=== PATIENT | male | born 1960 ===

== ENCOUNTER 2022-01-29 08:18 | Outpatient (CLI) | payer MEDICARE, OTHER, SELFPAY ==
--- NOTE | 2022-01-29 08:15 | RT.EKG_ITS ---
APPROVED REPORT Exam: Resting ECG Reason for Exam: CAD Patient Location: O HR:77 bpm ECG Measurements Heart Rate 77 AXIS IA 173 P 72 QRSd 90 QRS 25 QT 398 T 46 QTc 451 Conclusion Sinus rhythm...normal P axis, V-rate 50- 99 Probable left atrial enlargement...P >50mS, <-0.10mV V1 Otherwise normal
== END 2022-01-29 08:19 | disposition home or self-care (01) ==
LOC: DI.CARD 08:20
PROVIDERS: PCP Family Medicine; Visit Provider Internal Medicine Cardiovascular Disease
DX: I25.10 Atherosclerotic heart disease of native coronary artery without angina pectoris (principal)
CPT/HCPCS: 93010

== ENCOUNTER → 2022-01-29 12:23 | Outpatient (BNVA) | payer MEDICARE, OTHER, SELFPAY | PROVIDERS: PCP Family Medicine; Referring Provider Family Medicine; Visit Provider Internal Medicine Cardiovascular Disease | DX: I25.10 Atherosclerotic heart disease of native coronary artery without angina pectoris (principal); I35.0 Nonrheumatic aortic (valve) stenosis; I10 Essential (primary) hypertension; E78.5 Hyperlipidemia, unspecified; Z95.5 Presence of coronary angioplasty implant and graft | CPT/HCPCS: 93005; 99203 ==

== ENCOUNTER → 2023-01-31 10:31 | Outpatient (BNVA) | payer MEDICARE, OTHER, SELFPAY | PROVIDERS: PCP Family Medicine; Referring Provider Family Medicine; Visit Provider Internal Medicine Cardiovascular Disease | DX: I35.0 Nonrheumatic aortic (valve) stenosis (principal); I25.10 Atherosclerotic heart disease of native coronary artery without angina pectoris; E78.5 Hyperlipidemia, unspecified | CPT/HCPCS: 99214 ==

== ENCOUNTER 2024-09-13 08:05 | Outpatient (CLI) | payer MEDICARE, SELFPAY ==
--- NOTE | 2024-09-13 08:00 | RT.EKG_ITS ---
APPROVED REPORT Exam: Resting ECG Reason for Exam: CAD Patient Location: O HR:67 bpm ECG Measurements Heart Rate 67 AXIS TX 189 P 59 QRSd 106 QRS 2 QT 414 T 35 QTc 437 Conclusion Sinus rhythm...normal P axis, V-rate 50- 99 Normal Electrocardiogram
== END 2024-09-13 08:06 | disposition home or self-care (01) ==
LOC: DI.CARD 08:06
PROVIDERS: PCP Family Medicine; Visit Provider Internal Medicine Cardiovascular Disease
DX: I25.10 Atherosclerotic heart disease of native coronary artery without angina pectoris (principal)
CPT/HCPCS: 93010

== ENCOUNTER → 2024-09-13 09:00 | Outpatient (BNVA) | payer MEDICARE, SELFPAY | PROVIDERS: PCP Family Medicine; Referring Provider Family Medicine; Visit Provider Internal Medicine Cardiovascular Disease | DX: I35.0 Nonrheumatic aortic (valve) stenosis (principal); I25.10 Atherosclerotic heart disease of native coronary artery without angina pectoris; Z79.899 Other long term (current) drug therapy | CPT/HCPCS: 99213; 93005 ==

== ENCOUNTER → 2025-02-26 00:19 | Outpatient (CLI) | payer MEDICARE, SELFPAY ==
--- NOTE | 2025-02-26 07:45 | DI.US_ITS ---
APPROVED REPORT EXAM: Comprehensive 2D, Doppler, and color-flow Echocardiogram Patient Location: Out-Patient [employer] Manager: Lavenre Cornelius RT (R) (CT) [facility] Rhythm: Bradycardia Indications: Non-rheumatic aortic valve stenosis. Other Information Study Quality: Adequate Conclusion Normal left ventricular wall thickness and chamber size. Ejection fraction is 55 to 60%. Wall motion is normal Normal right ventricular size and function Both atria are normal in size Aortic valve is trileaflet and mildly sclerotic. There is minimal aortic stenosis with a mean gradient of 9 mmHg. There is mild aortic regurgitation Mild mitral and tricuspid regurgitation. Estimated right ventricular systolic pressure is 27 mmHg Wall motion Left Ventricle The left ventricle is normal size. The left ventricular systolic function is normal. The left ventricular ejection fraction is within the normal range. There is normal left ventricular wall thickness. There is normal LV segmental wall motion. Grade I diastolic dysfunction. Abnormal relaxation with normal LA filling pressures. There is no ventricular septal defect visualized. LVEF is 55-60%. Right Ventricle The right ventricle is normal size. The right ventricular systolic function is normal. There is normal right ventricular wall thickness. Atria The left atrium size is normal. The right atrium size is normal. Small PFO is noted. Aortic Valve Aortic valve is sclerotic and probably trileaflet. Borderline aortic stenosis. Aortic sclerosis without significant stenosis. Mean gradient 9 mmHg Mild aortic regurgitation. Mitral Valve The mitral valve is normal in structure. No evidence of mitral valve stenosis. Mild mitral regurgitation. Tricuspid Valve The tricuspid valve is normal in structure. There is no tricuspid valve stenosis. Mild tricuspid regurgitation. The RVSP is 27 mmHg. Pulmonic Valve The pulmonary valve is normal in structure. There is no pulmonic valvular stenosis. There is no significant pulmonic valvular regurgitation. Great Vessels The aortic root is normal in size. The pulmonary artery is normal. The ascending aorta is normal in size. IVC is normal in size and collapses >50% with inspiration. Pericardium There is no pericardial effusion. 2D Dimensions IVSD d PLAX 1.07 cm M: 0.6-1.2 Ao Root d 3.70 cm M: 3.1 - 3.7 LVPW d PLAX 0.75 cm M: 0.6 - 1.2 Ao Asc Diam d 3.48 cm M: 2.6 - 3.4 LVID d PLAX 5.42 cm M: 4.2 - 5.8 Prox Ao Arch 3.0 cm LVDs 3.86 cm M: 2.5 - 4.0 IVC Diam exp d SLAX 1.3 cm LV EF Teichholz 54.7 % FS 28.67 % LV EDV (Teich) 142.3 mL LV ESV (Teich) 64.4 mL M-Mode TAPSE 2.64 cm (M/F) >1.7 Auto EF LV EDV A4C 133.1 mL LV EDV A2C 134.6 mL LV EDV BP 135.5 mL LV ESV A4C 70.9 mL LV ESV A2C 56.2 mL LV ESV BP 64.0 mL LVEF(%) A4C 46.8 % LVEF(%) A2C 58.2 % LVEF(%) BP 52.8 % LV SV A4C 62.2 ml LV SV A2C 78.4 ml LV SV BP 71.5 ml LV CO A4C 3.4 L/min LV CO A2C 4.2 L/min LV CO BP 3.8 L/min HR A4C 55.21 BPM HR A2C 53.81 BPM LV EDV Index (BP) LV Volumes - Method of Disks (Mitchell's) Single Plane 2D LV Volumes Biplane 2D LV Volumes LV EDV A4C 125.9 mL LV EDV BP 125.01 mL M: 62 - 150 LV ESV A4C 55.6 mL LV ESV BP 51.0 mL LVEF(%) A4C 55.8 % LVEF(%) BP 59.23 % M: 52 - 72 LV EDV A2C 120.2 mL LV EDV BP Index 62.81 mL/m2 M: 34 - 74 LV ESV A2C 44.6 mL SV BP LVEF(%) A2C 62.9 % SV Index LV Strain Long Pk Overal Avg (s) 16.58 LA Volume LA Length A4C 4.9 cm LA Length A2C 5.2 cm LA Area A4C s 15.09 cm2 LA Area A2C s 17.71 cm2 LA Vol A4C A-L 39.38 mL LA Vol A2C A-L 51.41 mL LA Vol Biplane A-L 46.2 mL LA Vol/BSA A4C A-L LA Vol/BSA A2C A-L LA Vol/BSA BP A-L 23.3 mL/m2 LA Vol A4C MOD 36.7 mL LA Vol A2C MOD 46.9 mL LA Vol BP MOD 42.5 mL LV Diastology MV E' medial 0.057 (>0.07 m/s) MV E Vmax 0.49 (0.4-1.3 m/s) MV E/E' MED 8.72 (<14) MV A Vmax 0.70 (0.4-1.3 m/s) MV E' lateral 0.066 (>0.1 m/s) E/A Ratio 0.7 MV E/E' LAT 7.45 (<14) MV E' Average 0.062 m/s MV E/E'(average) 8.04 Aortic Valve AoV Vmax 2.16 m/s LVOT Vmax 0.83 m/s AoV Peak Grad 33.7 mmHg LVOT Peak Grad 2.7 mmHg AoV Area (Vmax) 1.69 cm2 LVOT VTI 0.233 m AoV VTI 0.447 m LVOT Mean Grad 1.8 mmHg AoV Mean Jamel. 1.35 m/s LVOT SV 102.73 mL AoV Mean Grad 8.5 mmHg LVOT Diam s 2.35 cm AoV Area (VTI) 2.30 cm2 AV Regurg Peak Gr. 18.64 mmHg Velocity Ratio 0.38 AR Decel [place]field 1.8m/sec2 AR DT 1962 msec AR PHT 569 msec AR Vmax 3.49 m/s Mitral Valve MV DT 148 (160-240 msec) Pulmonary Valve RVOT Vmax 0.42 m/s RVOT Peak Gr. 0.7 mmHg RVOT VTI 0.106 m RVOT Mean Gr. 0.4 mmHg Tricuspid Valve RA Pressure 3.00 mmHg TR Vmax 2.38 m/s TV S' 0.13 m/s TR Peak Grad 22.5 mmHg RVSP (TR) 25.6 mmHg
== END ==
LOC: DI 00:19
PROVIDERS: PCP Family Medicine; Visit Provider Internal Medicine Cardiovascular Disease
DX: I08.1 Rheumatic disorders of both mitral and tricuspid valves (principal)
CPT/HCPCS: 93306